=== PATIENT | female | born 1990 | race Caucasian/White ===

== ENCOUNTER 2017-01-04 18:56 | Emergency (ER) | payer MEDICAID ==
[2017-01-04 19:40] LABS: BASOPHILS 0.1 % (0.0-2.0); EOSINOPHILS 1.3 % (0-7); HEMOGLOBIN 12.9 g/dL (12-16); IMMATURE GRANULOCYTES 0.5 % (0-5); LYMPHOCYTES 27.4 % (15-50); MCH 26.9 pg (26.0-34.0); MCHC 33.1 g/dL (31.0-37.0); MCV 81.3 fL (80.0-100.0); MEAN PLATELET VOLUME 9.7 fL (7.4-10.4); NEUTROPHILS 65.7 % (40-80); PLATELET COUNT 261 10x3/uL (130-400); RDW 14.3 % (11.5-14.5); WBC 8.6 10x3/uL (4.8-10.8)
[2017-01-04 20:14] LABS: ALBUMIN 3.3 g/dL (3.4-5.0); ALKALINE PHOSPHATASE 98 U/L (46-116); ALT (SGPT) 25 U/L (10-68); BILIRUBIN - TOTAL 0.11 mg/dL (0.2-1.3); CALC OSMOLALITY 271 mosm/kg (275-300); CALCIUM 8.8 mg/dL (8.5-10.1); CARBAMAZEPINE (TEGRETOL) 3.9 ug/mL (4.0-12.0); CARBON DIOXIDE 24.2 mmol/L (21.0-32.0); CHLORIDE - SERUM 102 mmol/L (98-107); CREATININE - SERUM 0.8 mg/dL (0.6-1.3); GLUCOSE 80 mg/dL (74-106); MAGNESIUM - SERUM 1.8 mg/dL (1.8-2.4); POTASSIUM - SERUM 3.7 mmol/L (3.5-5.1); SODIUM 136 mmol/L (136-145); UREA NITROGEN 14 mg/dL (7-18); eGFR NON AFRICAN AMERICAN > 90 mL/min (90-120)
== END 2017-01-04 22:00 | disposition home or self-care (01) ==
LOC: D.ER 18:56
PROVIDERS: Emergency Medicine
DX: R56.9 Unspecified convulsions (principal); G43.909 Migraine, unspecified, not intractable, without status migrainosus; T42.1X6A Underdosing of iminostilbenes, initial encounter; Y92.9 Unspecified place or not applicable; E03.9 Hypothyroidism, unspecified

== ENCOUNTER 2017-01-22 14:51 | Emergency (ER) | payer MEDICAID ==
[2017-01-22 18:06] LABS: BASOPHILS 0.2 % (0.0-2.0); EOSINOPHILS 1.5 % (0-7); HEMOGLOBIN 13.3 g/dL (12-16); IMMATURE GRANULOCYTES 0.2 % (0-5); LYMPHOCYTES 38.9 % (15-50); MCH 26.7 pg (26.0-34.0); MCHC 32.4 g/dL (31.0-37.0); MCV 82.2 fL (80.0-100.0); MONOCYTES 4.9 % (2-11); NEUTROPHILS 54.3 % (40-80); PLATELET COUNT 273 10x3/uL (130-400); RBC 4.99 10x6/uL (4.00-5.40); RDW 14.2 % (11.5-14.5); WBC 6.1 10x3/uL (4.8-10.8)
[2017-01-22 18:20] LABS: ALBUMIN 3.5 g/dL (3.4-5.0); ALKALINE PHOSPHATASE 127 U/L (46-116); ALT (SGPT) 37 U/L (10-68); BILIRUBIN - TOTAL 0.12 mg/dL (0.2-1.3); CALC OSMOLALITY 275 mosm/kg (275-300); CHLORIDE - SERUM 105 mmol/L (98-107); CREATININE - SERUM 0.7 mg/dL (0.6-1.3); GLUCOSE 79 mg/dL (74-106); PHENYTOIN (DILANTIN) 2.8 ug/mL (10.0-20.0); POTASSIUM - SERUM 4.4 mmol/L (3.5-5.1); PROTEIN - SERUM 7.3 g/dL (6.4-8.2); SODIUM 139 mmol/L (136-145); UREA NITROGEN 10 mg/dL (7-18); eGFR NON AFRICAN AMERICAN > 90 mL/min (90-120)
[2017-01-22 18:50] LABS: APPEARANCE HAZY (CLEAR); BILIRUBIN NEGATIVE (NEGATIVE); COLOR YELLOW (YELLOW); GLUCOSE NEGATIVE (NEGATIVE); KETONE NEGATIVE (NEGATIVE); LEUKOCYTE ESTERASE TRACE (NEGATIVE); NITRITE NEGATIVE (NEGATIVE); PROTEIN NEGATIVE (NEGATIVE); RED CELLS - URINE 0-5 /hpf (0-5); SPECIFIC GRAVITY 1.015 (1.005-1.020); UROBILINOGEN NORMAL (NORMAL)
[2017-01-22 18:51] LABS: BACTERIA MODERATE /hpf (NONE SEEN); EPITHELIAL CELLS 0-5 /hpf (0-5); MUCUS <1+ /lpf (NONE SEEN)
[2017-01-22 18:52] LABS: UDS - AMPHET NEGATIVE QUAL (NEGATIVE); UDS - BARB NEGATIVE QUAL (NEGATIVE); UDS - BENZO NEGATIVE QUAL (NEGATIVE); UDS - COCAINE NEGATIVE QUAL (NEGATIVE); UDS - METH NEGATIVE QUAL (NEGATIVE); UDS - OPIATE NEGATIVE QUAL (NEGATIVE); UDS - PCP NEGATIVE QUAL (NEGATIVE); UDS - THC POSITIVE QUAL (NEGATIVE)
== END 2017-01-22 20:22 | disposition home or self-care (01) ==
LOC: D.ER 14:51
PROVIDERS: Nurse Practitioner Family
DX: G43.909 Migraine, unspecified, not intractable, without status migrainosus (principal); R11.2 Nausea with vomiting, unspecified; G40.909 Epilepsy, unspecified, not intractable, without status epilepticus; E03.9 Hypothyroidism, unspecified

== ENCOUNTER 2017-02-20 04:04 | Emergency (ER) | payer MEDICAID ==
[2017-02-20 04:38] LABS: APPEARANCE TURBID (CLEAR); BACTERIA MODERATE /hpf (NONE SEEN); BILIRUBIN NEGATIVE (NEGATIVE); COLOR RED (YELLOW); EPITHELIAL CELLS 0-5 /hpf (0-5); GLUCOSE NEGATIVE (NEGATIVE); KETONE NEGATIVE (NEGATIVE); LEUKOCYTE ESTERASE 2+ (NEGATIVE); NITRITE NEGATIVE (NEGATIVE); PROTEIN 2+ mg/dL (NEGATIVE); RED CELLS - URINE >50 /hpf (0-5); UROBILINOGEN NORMAL (NORMAL); WHITE CELLS - URINE 25-50 /hpf (0-5)
[2017-02-20 04:50] LABS: BASOPHILS 0.1 % (0.0-2.0); EOSINOPHILS 1.3 % (0-7); HEMATOCRIT 42.5 % (36.0-48.0); HEMOGLOBIN 13.9 g/dL (12-16); IMMATURE GRANULOCYTES 0.4 % (0-5); LYMPHOCYTES 22.4 % (15-50); MCH 26.7 pg (26.0-34.0); MCHC 32.7 g/dL (31.0-37.0); MCV 81.6 fL (80.0-100.0); MEAN PLATELET VOLUME 9.9 fL (7.4-10.4); MONOCYTES 4.4 % (2-11); NEUTROPHILS 71.4 % (40-80); PLATELET COUNT 295 10x3/uL (130-400); RBC 5.21 10x6/uL (4.00-5.40); WBC 14.2 10x3/uL (4.8-10.8)
[2017-02-20 05:01] LABS: HCG SERUM NEGATIVE (NEGATIVE)
== END 2017-02-20 05:55 | disposition home or self-care (01) ==
LOC: D.ER 04:04
PROVIDERS: Emergency Medicine
DX: N39.0 Urinary tract infection, site not specified (principal); R10.32 Left lower quadrant pain; G40.909 Epilepsy, unspecified, not intractable, without status epilepticus; E03.9 Hypothyroidism, unspecified; F17.200 Nicotine dependence, unspecified, uncomplicated; F12.90 Cannabis use, unspecified, uncomplicated

== ENCOUNTER 2017-03-18 21:38 | Emergency (ER) | payer MEDICAID ==
[2017-03-18 23:02] LABS: BASOPHILS 0.1 % (0-2); EOSINOPHILS 1.2 % (0-7); HEMATOCRIT 44.2 % (36.0-48.0); HEMOGLOBIN 14.5 g/dL (12-16); IMMATURE GRANULOCYTES 0.4 % (0-5); LYMPHOCYTES 36.5 % (15-50); MCH 27.4 pg (26.0-34.0); MCHC 32.8 g/dL (31.0-37.0); MCV 83.4 fL (80.0-100.0); MEAN PLATELET VOLUME 10.2 fL (7.4-10.4); MONOCYTES 5.3 % (2-11); NEUTROPHILS 56.5 % (40-80); PLATELET COUNT 292 10x3/uL (130-400); RDW 14.2 % (11.5-14.5); WBC 8.1 10x3/uL (4.8-10.8)
[2017-03-18 23:16] LABS: APPEARANCE HAZY (CLEAR); BACTERIA FEW /hpf (NONE SEEN); BILIRUBIN NEGATIVE (NEGATIVE); COLOR YELLOW (YELLOW); EPITHELIAL CELLS 0-5 /hpf (0-5); GLUCOSE NEGATIVE (NEGATIVE); KETONE NEGATIVE (NEGATIVE); LEUKOCYTE ESTERASE 1+ (NEGATIVE); NITRITE NEGATIVE (NEGATIVE); PROTEIN NEGATIVE (NEGATIVE); RED CELLS - URINE NONE SEEN /hpf (0-5); UROBILINOGEN NORMAL (NORMAL)
[2017-03-18 23:17] LABS: ALBUMIN 3.5 g/dL (3.4-5.0); ALKALINE PHOSPHATASE 169 U/L (46-116); ALT (SGPT) 110 U/L (10-68); BILIRUBIN - TOTAL 0.23 mg/dL (0.2-1.3); CALC OSMOLALITY 278 mosm/kg (275-300); CALCIUM 9.1 mg/dL (8.5-10.1); CARBON DIOXIDE 26.4 mmol/L (21.0-32.0); CHLORIDE - SERUM 103 mmol/L (98-107); CREATININE - SERUM 0.8 mg/dL (0.6-1.3); GLUCOSE 105 mg/dL (74-106); POTASSIUM - SERUM 3.5 mmol/L (3.5-5.1); PROTEIN - SERUM 7.4 g/dL (6.4-8.2); SODIUM 139 mmol/L (136-145); UREA NITROGEN 14 mg/dL (7-18); eGFR NON AFRICAN AMERICAN > 90 mL/min (90-120)
[2017-03-18 23:19] LABS: HCG SERUM NEGATIVE (NEGATIVE)
[2017-03-18 23:25] LABS: MAGNESIUM - SERUM 2.1 mg/dL (1.8-2.4); THYROID STIMULATING HORMONE 2.76 uIU/mL (0.36-3.74)
== END 2017-03-19 01:34 | disposition home or self-care (01) ==
LOC: D.ER 21:38
PROVIDERS: Emergency Medicine
DX: R10.9 Unspecified abdominal pain (principal); R11.10 Vomiting, unspecified; E86.0 Dehydration; G40.909 Epilepsy, unspecified, not intractable, without status epilepticus; E03.9 Hypothyroidism, unspecified; F17.200 Nicotine dependence, unspecified, uncomplicated

== ENCOUNTER 2017-04-19 21:26 | Emergency (ER) | payer MEDICAID | END 2017-04-20 02:31 | disposition home or self-care (01) | LOC: D.ER 21:26 | DX: M26.609 Unspecified temporomandibular joint disorder, unspecified side (principal); F17.200 Nicotine dependence, unspecified, uncomplicated ==

== ENCOUNTER 2017-06-01 22:58 | Emergency (ER) | payer MEDICAID ==
[2017-06-02] LABS: APPEARANCE CLEAR (CLEAR); COLOR STRAW (YELLOW); UDS - AMPHET NEGATIVE QUAL (NEGATIVE); UDS - BARB NEGATIVE QUAL (NEGATIVE); UDS - BENZO NEGATIVE QUAL (NEGATIVE); UDS - COCAINE NEGATIVE QUAL (NEGATIVE); UDS - METH NEGATIVE QUAL (NEGATIVE); UDS - OPIATE NEGATIVE QUAL (NEGATIVE); UDS - PCP NEGATIVE QUAL (NEGATIVE); UDS - THC POSITIVE QUAL (NEGATIVE)
[2017-06-02 00:01] LABS: BILIRUBIN NEGATIVE (NEGATIVE); GLUCOSE NEGATIVE (NEGATIVE); KETONE NEGATIVE (NEGATIVE); LEUKOCYTE ESTERASE 1+ (NEGATIVE); NITRITE NEGATIVE (NEGATIVE); PROTEIN NEGATIVE (NEGATIVE); SPECIFIC GRAVITY 1.005 (1.005-1.020); UROBILINOGEN NORMAL (NORMAL)
[2017-06-02 00:04] LABS: BACTERIA FEW /hpf (NONE SEEN); EPITHELIAL CELLS 0-5 /hpf (0-5); RED CELLS - URINE 0-5 /hpf (0-5); WHITE CELLS - URINE 0-5 /hpf (0-5)
[2017-06-02 00:53] LABS: BASOPHILS 0.1 % (0-2); EOSINOPHILS 0.8 % (0-7); HEMATOCRIT 39.6 % (36.0-48.0); HEMOGLOBIN 13.2 g/dL (12-16); IMMATURE GRANULOCYTES 0.4 % (0-5); LYMPHOCYTES 26.6 % (15-50); MCH 27.7 pg (26.0-34.0); MCHC 33.3 g/dL (31.0-37.0); MEAN PLATELET VOLUME 9.6 fL (7.4-10.4); MONOCYTES 3.8 % (2-11); NEUTROPHILS 68.3 % (40-80); PLATELET COUNT 282 10x3/uL (130-400); RBC 4.77 10x6/uL (4.00-5.40); RDW 13.1 % (11.5-14.5); WBC 8.2 10x3/uL (4.8-10.8)
[2017-06-02 01:01] LABS: ALBUMIN 3.1 g/dL (3.4-5.0); ALKALINE PHOSPHATASE 121 U/L (46-116); ALT (SGPT) 26 U/L (10-68); BILIRUBIN - TOTAL 0.24 mg/dL (0.2-1.3); CALC OSMOLALITY 276 mosm/kg (275-300); CALCIUM 8.3 mg/dL (8.5-10.1); CARBON DIOXIDE 23.3 mmol/L (21.0-32.0); CHLORIDE - SERUM 106 mmol/L (98-107); CREATININE - SERUM 0.7 mg/dL (0.6-1.3); GLUCOSE 91 mg/dL (74-106); POTASSIUM - SERUM 3.7 mmol/L (3.5-5.1); SODIUM 140 mmol/L (136-145); UREA NITROGEN 8 mg/dL (7-18); eGFR NON AFRICAN AMERICAN > 90 mL/min (90-120)
== END 2017-06-02 07:42 | disposition home or self-care (01) ==
LOC: D.ER 22:58
PROVIDERS: Family Medicine
DX: F53 Mental and behavioral disorders associated with the puerperium, not elsewhere classified (principal); R45.851 Suicidal ideations; F17.200 Nicotine dependence, unspecified, uncomplicated; R94.31 Abnormal electrocardiogram [ECG] [EKG]

== ENCOUNTER → 2017-06-15 10:35 | Outpatient (CLI) | payer MEDICAID ==
[2017-06-15 12:44] LABS: BASOPHILS 0.1 % (0-2); EOSINOPHILS 1.3 % (0-7); HEMATOCRIT 40.9 % (36.0-48.0); HEMOGLOBIN 13.6 g/dL (12-16); IMMATURE GRANULOCYTES 0.5 % (0-5); LYMPHOCYTES 29.1 % (15-50); MCH 27.2 pg (26.0-34.0); MCHC 33.3 g/dL (31.0-37.0); MCV 81.8 fL (80.0-100.0); MEAN PLATELET VOLUME 9.7 fL (7.4-10.4); MONOCYTES 4.3 % (2-11); NEUTROPHILS 64.7 % (40-80); PLATELET COUNT 315 10x3/uL (130-400); WBC 8.2 10x3/uL (4.8-10.8)
[2017-06-15 13:00] LABS: ALBUMIN 3.4 g/dL (3.4-5.0); ALKALINE PHOSPHATASE 154 U/L (46-116); ALT (SGPT) 21 U/L (10-68); BILIRUBIN - TOTAL 0.45 mg/dL (0.2-1.3); CALC OSMOLALITY 279 mosm/kg (275-300); CALCIUM 8.9 mg/dL (8.5-10.1); CHLORIDE - SERUM 104 mmol/L (98-107); CREATININE - SERUM 0.7 mg/dL (0.6-1.3); GLUCOSE 103 mg/dL (74-106); POTASSIUM - SERUM 4.2 mmol/L (3.5-5.1); PROTEIN - SERUM 7.4 g/dL (6.4-8.2); SODIUM 141 mmol/L (136-145); UREA NITROGEN 9 mg/dL (7-18); eGFR NON AFRICAN AMERICAN > 90 mL/min (90-120)
[2017-06-15 13:02] LABS: PHENYTOIN (DILANTIN) 0.4 ug/mL (10.0-20.0)
== END | disposition home or self-care (01) ==
LOC: D.CN 10:35
PROVIDERS: Psychiatry & Neurology Neurology
DX: R51 Headache (principal); G40.101 Localization-related (focal) (partial) symptomatic epilepsy and epileptic syndromes with simple partial seizures, not intractable, with status epilepticus

== ENCOUNTER → 2017-10-25 16:01 | Outpatient (CLI) | payer MEDICAID ==
[~2017-10-25 16:01] MED LIST: DEPAKOTE500 MG PO; DURICEF500 MG PO; LISINOPRIL5 MG PO; PERCOCET 5-3251 TAB PO
[2017-11-23 09:12] VITALS: BMI 44.4
== END | disposition home or self-care (01) ==
LOC: D.MRI 10-20 14:30
DX: M25.532 Pain in left wrist (principal)

== ENCOUNTER 2017-11-23 07:14 | Day surgery (SDC) | payer MEDICAID ==
[2017-11-22 09:47] LABS: HEMATOCRIT 41.6 % (36.0-48.0); HEMOGLOBIN 13.9 g/dL (12-16); MCH 27.2 pg (26.0-34.0); MCHC 33.4 g/dL (31.0-37.0); MCV 81.4 fL (80.0-100.0); MEAN PLATELET VOLUME 9.7 fL (7.4-10.4); RBC 5.11 10x6/uL (4.00-5.40); RDW 13.6 % (11.5-14.5); WBC 8.4 10x3/uL (4.8-10.8)
[~2017-11-23] VITALS: Ht 175.3 cm; Wt 136.1 kg
--- NOTE | ~2017-11-23 | OP ---
PATIENT NAME: MALATHI PARRY MEDICAL RECORD: [id number] :90 LOCATION:D.OPS ADMISSION DATE: SURGEON: PABLO GUIDRY DO DATE OF OPERATION: 11/23/2017 PROCEDURE PERFORMED: Excision of ganglion, left volar wrist. PREOPERATIVE DIAGNOSIS: Left volar wrist ganglion. POSTOPERATIVE DIAGNOSIS: Left volar wrist ganglion. INDICATIONS: Ms. Parry is a 26-year-old female who has complained of a left wrist volar mass for some time. She is tired of it hurting and it is getting bigger, she says. An MRI was done to ensure, due to the location was on the radial side, it was not an aneurysm and it was not. She was scheduled for surgery to have it removed. She is aware of the risks and benefits of the procedure. TOURNIQUET TIME: 8 minutes. COMPLICATIONS: None. BLOOD LOSS: Minimal. DESCRIPTION OF PROCEDURE: The patient was taken to the operative suite, laid in supine position, given general anesthetic, and LMA was placed. A 2 grams Ancef were given prior to starting. The left upper extremity was prepped and draped in sterile fashion. A timeout was then performed and everyone is in agreeance to correct side, site, and patient. Tourniquet had been placed above the elbow prior to draping, wound, and the timeout. After the timeout was performed, incision was marked out over the radial wrist volar aspect. Once this was done, an Esmarch was used to exsanguinate the left upper extremity and the tourniquet was inflated to 250 mmHg. The incision then was made right over the ganglion and careful dissection was made down to it. It was freed up of all the soft tissue and the stalk was traced back to wrist capsule on the volar side and at that time, the ganglion ruptured, and the stalk and everything was removed and where the stalk had come out of the wrist, a bipolar was used to coagulate the stalk, feeling that hole on the wrist capsule. After this was done, the tourniquet was let down and any bleeders at that time were coagulated. The skin was then closed with 5-0 Monocryl inverted interrupted fashion and Steri-Strips were placed over that and then 10 mL of 1% lidocaine were placed around the incision to anesthetize the area. The wound was then covered with Adaptic, 4 x 4s, Kerlix, and Coban was lightly wrapped over the hand. The patient was awakened and taken to recovery in stable condition. TRANSINT:[id number] Voice Confirmation ID: [id number] DOCUMENT ID: [id number] OPERATIVE REPORT [id number] MALATHI PARRY MICHAEL D, DO at 1931 CC: [id number] DICTATION DATE: 11/23/17 1252 ANIMAL PATHOLOGIST: 11/23/17 1348 [facility] 11/23/17 [place] [address] [place] [address]
[~2017-11-23 07:14] MED LIST changes: -DURICEF500 MG PO; -PERCOCET 5-3251 TAB PO
[2017-11-23 09:12] VITALS: BP 105/76; Ht 175.3 cm; Wt 136.1 kg
[2017-11-23 09:36] LABS: HCG URINE NEGATIVE (NEGATIVE)
[2017-11-23] MEDS ORDERED: PERCOCET 5-3251 TAB PO (12:47)
[2017-11-23] MEDS ORDERED: DURICEF500 MG PO (12:48)
== END 2017-11-23 14:23 | disposition home or self-care (01) ==
LOC: D.OPS 07:14
PROVIDERS: Anesthesiology; Orthopaedic Surgery
DX: M67.432 Ganglion, left wrist (principal); F17.200 Nicotine dependence, unspecified, uncomplicated; I10 Essential (primary) hypertension; E03.9 Hypothyroidism, unspecified; G47.30 Sleep apnea, unspecified; K21.9 Gastro-esophageal reflux disease without esophagitis; E66.01 Morbid (severe) obesity due to excess calories; Z68.41 Body mass index [BMI] 40.0-44.9, adult; Z01.812 Encounter for preprocedural laboratory examination

== ENCOUNTER 2017-12-23 17:12 | Emergency (ER) | payer MEDICAID ==
[2017-11-23 09:12] VITALS: BMI 44.4
[~2017-12-23 17:12] MED LIST changes: +DURICEF500 MG PO; +PERCOCET 5-3251 TAB PO
[2017-12-23 19:28] LABS: BASOPHILS 0.1 % (0-2); EOSINOPHILS 0.7 % (0-7); HEMATOCRIT 41.9 % (36.0-48.0); HEMOGLOBIN 13.8 g/dL (12-16); IMMATURE GRANULOCYTES 0.6 % (0-5); LYMPHOCYTES 30.9 % (15-50); MCH 26.7 pg (26.0-34.0); MCHC 32.9 g/dL (31.0-37.0); MEAN PLATELET VOLUME 9.7 fL (7.4-10.4); MONOCYTES 4.3 % (2-11); NEUTROPHILS 63.4 % (40-80); PLATELET COUNT 308 10x3/uL (130-400); RBC 5.17 10x6/uL (4.00-5.40); RDW 13.7 % (11.5-14.5); WBC 10.8 10x3/uL (4.8-10.8)
[2017-12-23 19:42] LABS: ALBUMIN 3.3 g/dL (3.4-5.0); ALKALINE PHOSPHATASE 117 U/L (46-116); ALT (SGPT) 22 U/L (10-68); BILIRUBIN - TOTAL 0.23 mg/dL (0.2-1.3); CALC OSMOLALITY 280 mosm/kg (275-300); CALCIUM 9.4 mg/dL (8.5-10.1); CARBON DIOXIDE 25.6 mmol/L (21.0-32.0); CHLORIDE - SERUM 104 mmol/L (98-107); CREATININE - SERUM 0.7 mg/dL (0.6-1.3); GLUCOSE 86 mg/dL (74-106); PROTEIN - SERUM 7.2 g/dL (6.4-8.2); SODIUM 141 mmol/L (136-145); UREA NITROGEN 16 mg/dL (7-18); eGFR NON AFRICAN AMERICAN > 90 mL/min (90-120)
[2017-12-23 19:43] LABS: VALPROIC ACID (DEPAKOTE) 21.7 ug/mL (50.0-100.0)
== END 2017-12-23 21:58 | disposition home or self-care (01) ==
LOC: D.ER 17:12
PROVIDERS: Physician Assistant Medical
DX: G43.909 Migraine, unspecified, not intractable, without status migrainosus (principal); F17.200 Nicotine dependence, unspecified, uncomplicated

== ENCOUNTER 2018-10-25 20:22 | Emergency (ER) | payer MEDICAID ==
[~2018-10-25] VITALS: Ht 175.3 cm; Wt 135.5 kg
[2018-10-25 20:38] VITALS: Ht 175.3 cm; Wt 135.5 kg
[2018-10-25] MEDS ORDERED: PRENAVITE1 TAB (20:39)
[2018-10-25] MEDS ORDERED: ZOFRAN ODT4 MG/UDTAB PO (23:14)
[2018-10-25] MEDS ORDERED: TAMIFLU75 MG PO (23:14)
[2018-10-25] MEDS ORDERED: ALBUTEROL SULF8.5 GM INH (23:15)
[2018-10-25 23:47] VITALS: BP 101/54
== END 2018-10-25 23:49 | disposition home or self-care (01) ==
LOC: D.ER 20:22
DX: O26.891 Other specified pregnancy related conditions, first trimester (principal); Z3A.10 10 weeks gestation of pregnancy; J11.1 Influenza due to unidentified influenza virus with other respiratory manifestations; R06.2 Wheezing; R09.89 Other specified symptoms and signs involving the circulatory and respiratory systems; R05 Cough; R50.9 Fever, unspecified; F17.200 Nicotine dependence, unspecified, uncomplicated

== ENCOUNTER 2018-12-28 19:22 | Emergency (ER) | payer MEDICAID ==
[~2018-12-28] VITALS: Ht 175.3 cm; Wt 127.3 kg
[~2018-12-28 19:22] MED LIST changes: +ALBUTEROL SULF8.5 GM INH; +PRENAVITE1 TAB; +TAMIFLU75 MG PO; +ZOFRAN ODT4 MG/UDTAB PO
[2018-12-28 19:42] VITALS: Ht 175.3 cm; Wt 127.3 kg
[2018-12-28] MEDS ORDERED: CBD OILS (19:43)
[2018-12-28 20:31] LABS: APPEARANCE CLEAR (CLEAR); BILIRUBIN NEGATIVE (NEGATIVE); COLOR YELLOW (YELLOW); GLUCOSE NEGATIVE (NEGATIVE); KETONE NEGATIVE (NEGATIVE); NITRITE NEGATIVE (NEGATIVE); PROTEIN NEGATIVE (NEGATIVE); UROBILINOGEN NORMAL (NORMAL)
[2018-12-28 21:20] VITALS: BP 135/75
== END 2018-12-28 22:28 | disposition home or self-care (01) ==
LOC: D.ER 19:22
PROVIDERS: Family Medicine
DX: O34.80 Maternal care for other abnormalities of pelvic organs, unspecified trimester (principal); Z3A.00 Weeks of gestation of pregnancy not specified; N81.2 Incomplete uterovaginal prolapse

== ENCOUNTER 2019-03-03 15:57 | Observation (INO) | payer MEDICAID ==
[~2019-03-03] VITALS: Ht 177.8 cm; Wt 137.0 kg
[~2019-03-03 15:57] MED LIST changes: +CBD OILS
--- NOTE | 2019-03-03 17:44 | NUR ---
PT STATES SHE WAS WALKING ON A STEP AND THE STEP BROKE, SHE FELL, IMMEDIATE PAIN TO HER RIGHT ANKLE, STATES SHE HEARD SOMETHING POP. RIGHT LEG ELEVATED WITH ICE PACK, AT BEDSIDE. PROVIDER CALLING ORTHO AND OB DOCTORS. PATIENT WANTING SOMETHING FOR PAIN, WAITING TO CONSULT WITH OB.
[2019-03-03 18:30] VITALS: BP 118/77
[2019-03-03 19:18] LABS: BASOPHILS 0.1 % (0-2); EOSINOPHILS 0.8 % (0-7); HEMATOCRIT 34.3 % (36.0-48.0); HEMOGLOBIN 11.5 g/dL (12-16); IMMATURE GRANULOCYTES 0.6 % (0-5); LYMPHOCYTES 12.9 % (15-50); MCH 25.8 pg (26.0-34.0); MCHC 33.5 g/dL (31.0-37.0); MCV 77.1 fL (80.0-100.0); MEAN PLATELET VOLUME 9.8 fL (7.4-10.4); MONOCYTES 2.1 % (2-11); NEUTROPHILS 83.5 % (40-80); PLATELET COUNT 286 10x3/uL (130-400); RBC 4.45 10x6/uL (4.00-5.40); RDW 14.6 % (11.5-14.5); WBC 11.6 10x3/uL (4.8-10.8)
--- NOTE | 2019-03-03 19:20 | NUR ---
PT FRACTURED RIGHT ANKLE, ICE PACK PLACED ON RIGHT ANKLE. PT TO BE ADMITTED, PATIENT PLACED ON BEDPAN, CLOTHES REMOVED, GOWN PUT ON. PATIENT DOING WELL CAN BE EXPECTED, CALL LIGHT WITHIN REACH. HEART TONES 144, PROVIDER NOTIFIED.
[2019-03-03 19:23] VITALS: BP 113/71
[2019-03-03 19:29] LABS: HCG SERUM POSITIVE (NEGATIVE)
[2019-03-03 19:32] LABS: APTT 29.9 SECONDS (22.8-39.4); INR 0.97 (0.85-1.17); PROTIME 12.4 SECONDS (11.6-15.0)
[2019-03-03 19:36] LABS: ALBUMIN 2.5 g/dL (3.4-5.0); ALKALINE PHOSPHATASE 80 U/L (46-116); ALT (SGPT) 14 U/L (10-68); BILIRUBIN - TOTAL 0.14 mg/dL (0.2-1.3); CALC OSMOLALITY 273 mosm/kg (275-300); CALCIUM 8.3 mg/dL (8.5-10.1); CARBON DIOXIDE 21.8 mmol/L (21.0-32.0); CHLORIDE - SERUM 103 mmol/L (98-107); CREATININE - SERUM 0.5 mg/dL (0.6-1.3); GLUCOSE 91 mg/dL (74-106); POTASSIUM - SERUM 4.1 mmol/L (3.5-5.1); PROTEIN - SERUM 6.4 g/dL (6.4-8.2); SODIUM 138 mmol/L (136-145); UREA NITROGEN 8 mg/dL (7-18); eGFR NON AFRICAN AMERICAN > 90 mL/min (90-120)
[2019-03-03 21:26] VITALS: BP 135/84
--- NOTE | 2019-03-03 21:36 | NUR ---
PT VSS - RATES PAIN 06/24 -DR AT BEDSIDE - PT GIVEN BENDARYL, MORPHINE AND PHENERGREN TO ALLEVIATE PAIN. PT ASKING TO GO OUTSIDE TO SMOKE - THIS NURSE EXPLAINED TO HER THAT SHE CANNOT GO OUTSIDE THE HOSPITAL TO SMOKE AND THAT ANY ATTEMPTS TO LEAVE THE ED WHILE ON PAIN MEDS WITH AN INFUSING IV, FRACTURED FOOT AND IS NOT ADVISED.
--- NOTE | 2019-03-03 22:15 | NUR ---
PATIENT TRANSPORTED TO L&D WITH NS INFUSING AT 100 ML/HR
[2019-03-04 00:11] VITALS: BP 112/59; BMI 43.4
--- NOTE | 2019-03-04 05:49 | NUR ---
IV PITOCIN OFF PER ORDER DR. AMATO. PT. CURRENTLY LOOKING AT CELL PHONE. KMNEE JERK REFLEXES BRISK.
--- NOTE | 2019-03-04 07:45 | NUR ---
ASSUMED CARE OF THIS PATIENT. SITTING IN LOW BERGMAN'S POSITION. WAITING TO GO TO SURGERY THIS AM. VS OBTAINED. PER MD ORDERS NST PRIOR TO SURGERY. IV LR INFUSING LEFT WRIST ON ALARIS PUMP AT 100 ML/HR. POWERS INTACT AND DRAINING MOD YELLOW URINE. RIGHT LEG ELEVATED ON PILLOWS WITH ICE PACK IN PLACE. VISITOR X 1 IN ROOM. SIDE RAILS UP X 2, CALL LIGHT IN REACH.
--- NOTE | 2019-03-04 08:40 | NUR ---
NST REACTIVE. MONITOR DC'D. OR TECH IN ROOM WAITING TO TAKE PT TO OR.
--- NOTE | 2019-03-04 08:40 | NUR ---
PLACED ON MONITOR FOR NST. UNSURE WHEN OR WILL BE HERE TO GET PATIENT FOR SURGERY.
--- NOTE | 2019-03-04 08:44 | NUR ---
DR AMATO IN ROOM. REVIEWED STRIP.
--- NOTE | 2019-03-04 08:45 | NUR ---
PRE-OP MEDS GIVEN AND PRE-OP CHECK OFF SLEEP WAS COMPLETED. CONSENTS SIGNED AND WITNESSED EARILIER.
--- NOTE | 2019-03-04 08:59 | NUR ---
TO OR VIA BED.
--- NOTE | 2019-03-04 10:07 | NUR ---
MONITOR ON IN OR. THIS RN HAND HELD US DURING SURGICAL PROCEDURE. TIME ON MONITOR ONE HOUR OFF. TIME ON STRIP 0907 BUT ACTUAL START 1007.
--- NOTE | 2019-03-04 10:26 | NUR ---
O2 WITH MASK ADDED. PT BECAME FIRE RISK OF 2. WATER ON FIELD
[2019-03-04 10:34] VITALS: Ht 177.8 cm; Wt 137.0 kg
--- NOTE | 2019-03-04 10:44 | NUR ---
MONITORS OFF AT THE COMPLETION OF SURGERY. FHT BASELINE 145 WITH ACCELERATIONS AND MOD VARIABILITY. NO CTXS NOTED.
--- NOTE | 2019-03-04 10:52 | NUR ---
MONITOR ON WHILE IN RECOVERY ROOM. HAND HELD US.
--- NOTE | 2019-03-04 11:10 | NUR ---
MONITOR DC'D IN RECOVERY ROOM. FHTS BASELINE 130. MOD VARIABILITY WITH ACCELS.
--- NOTE | 2019-03-04 11:20 | NUR ---
STRIP TAKEN TO L&D. PT REMAINS IN RECOVERY. DR AMATO REVIEWED BOTH STRIPS AND SIGNED THEM OFF.
--- NOTE | 2019-03-04 11:27 | NUR ---
DR DE LEON AT BEDSIDE. REBLOCKED PATIENT'S RIGHT LEG. WILL CONTINUE TO MONITOR.
--- NOTE | 2019-03-04 11:55 | NUR ---
UPON LEAVING SURGERY DEPARTMENT, I RECEIVED A PHONE CALL FROM MALIA SAVAGE IN [facility] STATING THAT THIS PATIENT HAS BEEN CLEARED WITH HER POST OP NST PER DR. AMATO. VERBAL ORDERS RECEIVED FROM DR. AMATO TO TRANSFER PATIENT TO MED/SURG FLOOR TO HAVE DR. BRINK RESUME CARE FOR THIS PATIENT. CALLED MALIA OLIVEROSSOLAR SALES ASSOCIATE AND INFORMED HER OF THE ABOVE. SHE THEN ASSIGNED ROOM #[id number] ON MED/SURG FLOOR. I THEN TRANSFERRED PATIENT TO ROOM.
--- NOTE | 2019-03-04 12:26 | NUR ---
PT RECEIVED FROM SURGERY ALERT AND ORIENTED AND DENIES ANY PAIN OR DISCOMFORT AT THIS TIME. UNALBE TO MOVE EXTREMTIY DUE TO BLOCK. CAP REFILL <3 SEC. FUSBAND PRESENT WITH CLL LIGHT IN REACH. STABLE AT THIS TIME
[2019-03-04 16:00] VITALS: BP 105/48
[2019-03-04 17:12] VITALS: BP 105/48
--- NOTE | 2019-03-04 18:32 | NUR ---
PT RECEIVING MORE FEELING TO RLE WITH MS GIVEN FOR RELEIF OF PAIN. CAP REFILL LESS THAN 3 SECONDS. FAMILY PRESENT WITH HEART TONES NOTED PER DOPPLER.
--- NOTE | 2019-03-04 18:56 | NUR ---
PORTABLE MONITOR WAS TAKED TO MED/SURG [place]EN TO DO NST PER MD ORDERS. STARTED MONITOR AT 1818- MONITOR TIME INCORRECT AN HOUR EARLIER. FHT BASELINE 125 WITH ACCELS TO 150. NO CTXS NOTED. HAND HELD MONITOR DURING ENTIRE MONITORING TO KEEP FETUS ON MONITOR. SOME ACCELS AUDIBLE AND FM FELT BUT OCCASIONALLY UNABLE TO KEEP CONTINUOUS STRIP. ABDOMEN SOFT. PT NEEDED TO VOID AT END OF MONITOR WAS ASSISTED UP TO BATHROOM BY FAMILY AND USED WALKER.
--- NOTE | 2019-03-04 19:30 | NUR ---
PT ALERT AND ORIENTED. FAMILY IN ROOM. LOWER RIGHT EXTREMETY ELEVATED ON PILLOW. TOES WARM. DENIES BEING ABLE TO MOVE TOES AT THIS TIME BUT ABLE TO LIFT LEG WITH NO PROBLEMS. CAST WRAPPED WITH MAK WRAP. MAK WRAP CLEAN, NO DRAINIAGE AT THIS TIME. CALL LIGHT IN REACH. PT PROVIDES RETURN DEMONSTRATION ON HOW TO USE. DENIES FURTHER CARE AT THIS TIME.
--- NOTE | 2019-03-04 19:38 | NUR ---
REPORT CALLED TO DR AMATO REGARDING STRIP. NO NEW ORDERS RECEIVED.
[2019-03-04 20:00] VITALS: BP 117/53
--- NOTE | 2019-03-04 21:56 | NUR ---
REPORT GIVEN TO DR. BRINK WHEN HE CALLED TO CHECK IN.
--- NOTE | 2019-03-04 22:21 | NUR ---
ASSISTED PATIENT TO BATHROOM. CHECKED CAP REFILL. TOES WARM TO TOUCH. DENIES PAIN AT THIS TIME BUT STATES SHE IS SORE WHEN AMBULATING WITH WALKER. RETURNED BACK TO BED CALL LIGHT IN REACH.
--- NOTE | 2019-03-04 23:33 | NUR ---
PAGED TO ROOM BY TRISTON. WALKED IN AND PATIENT HAVING ACTIVE SEIZURE. TURNED PATIENT TO SIDE. PATIENT TURNED TO SIDE AND RAPID RESPONSE CALLED. PT SEIZED FOR 10-15 SECONDS AFTER THEN TAKES VERY LARGE DEEP BREATH AND BEGINS TO ANSWER QUESTIONS. RESPIRATORY IN ROOM SPO2 97%. VITALS OBTAINED BP 119/50. HR 95. RESPIRATIONS 18. FSBS 101. DR. KEENA OLSON. DR LM OLSON. L&D TO FLOOR. HEART TONES NOTED. PT ALERT. ANSWERING QUESTIONS APPROPRIATELY. STATES HISTORY OF EPIPLEPSY AND TONIC CLONIC SEIZURES. HAS BEEN UNABLE TO TAKE CBD OIL. VSS STABLE AT THIS TIME.
[2019-03-04 23:47] LABS: BASOPHILS 0.1 % (0-2); EOSINOPHILS 1.4 % (0-7); HEMATOCRIT 32.2 % (36.0-48.0); HEMOGLOBIN 10.5 g/dL (12-16); IMMATURE GRANULOCYTES 0.7 % (0-5); LYMPHOCYTES 16.8 % (15-50); MCH 25.4 pg (26.0-34.0); MCHC 32.6 g/dL (31.0-37.0); MEAN PLATELET VOLUME 9.5 fL (7.4-10.4); PLATELET COUNT 239 10x3/uL (130-400); RBC 4.13 10x6/uL (4.00-5.40); RDW 14.6 % (11.5-14.5); WBC 9.9 10x3/uL (4.8-10.8)
--- NOTE | 2019-03-04 23:48 | NUR ---
THIS RN AT BEDSIDE. PT CONVERSING WITH STAFF. MOVEMENT PALPABLE BY RN. PT STATES THAT SHE CAN FEEL MOVEMENT ALSO. FHT'S 130'S-140'S. ABD PALPATES SOFT. UNABLE TO APPLY TOCO AT THIS TIME, D/T RR TEAM WORKING WITH PT.
[2019-03-05] VITALS: BP 119/50
--- NOTE | 2019-03-05 | NUR ---
ABD CONTINUES TO PALPATE SOFT. TOCO APPLIED. EFM ADJUSTED, FHT'S REMAIN 120'S-130'S.
[2019-03-05 00:11] LABS: ALBUMIN 2.1 g/dL (3.4-5.0); ALKALINE PHOSPHATASE 74 U/L (46-116); ALT (SGPT) 12 U/L (10-68); BILIRUBIN - TOTAL 0.22 mg/dL (0.2-1.3); CALC OSMOLALITY 269 mosm/kg (275-300); CALCIUM 7.6 mg/dL (8.5-10.1); CARBON DIOXIDE 22.3 mmol/L (21.0-32.0); CHLORIDE - SERUM 104 mmol/L (98-107); CREATININE - SERUM 0.6 mg/dL (0.6-1.3); GLUCOSE 94 mg/dL (74-106); MAGNESIUM - SERUM 1.7 mg/dL (1.8-2.4); POTASSIUM - SERUM 3.7 mmol/L (3.5-5.1); PROTEIN - SERUM 6.3 g/dL (6.4-8.2); SODIUM 136 mmol/L (136-145); UREA NITROGEN 6 mg/dL (7-18); eGFR NON AFRICAN AMERICAN > 90 mL/min (90-120)
--- NOTE | 2019-03-05 00:12 | NUR ---
DR. AMATO CALLS INTO ROOM, SPEAKS WITH PT REGARDING NEURO APPT AT [facility]. FOLLOWING SPEAKING WITH THE PT THIS RN SPOKE WITH DR. AMATO. TRACE REVIEWED WITH DR. AMATO. BASELINE 130'S WITH 10X10 ACCELS, MODERATE VARIBILITY, UC TIMES 1 PALPATED MILD LASTING 40 SECONDS. PT DENIED FEELING UC.
--- NOTE | 2019-03-05 00:43 | NUR ---
DR. AMATO ON UNIT. STRIP REVIEWED BY DR. AMATO.
--- NOTE | 2019-03-05 00:44 | NUR ---
DR. AMATO AT BEDSIDE DISCUSSING PLAN OF CARE WITH PT AND THAT IF SHE DECLINES TRANSFER TO [facility] IT WOULD BE AMA. DR. AMATO EXPLAINS TO PT THAT SHE HAS THE RIGHT TO REFUSE TRANSFER, HOWEVER WITH IT BEING AMA SHE WOULD NOT BE RESPONSIBLE FOR POTENTIAL BAD OUTCOMES. PT VERBALIZES UNDERSTANDING. DR. AMATO EXPLAINS BENEFITS OF TRANSFER TO PT AND SPOUSE. BOTH VERBALIZE UNDERSTANDING AND PT AGREEABLE TO TRANSFER AT THIS TIME.
--- NOTE | 2019-03-05 00:50 | NUR ---
DR. AMATO CONTACTING [facility] THROUGH [facility] [place] FOR TRANSFER.
--- NOTE | 2019-03-05 01:18 | NUR ---
PT SAT UP ON EDGE OF BED IN ATTEPMT TO AMBULATE TO BATHROOM. DENIES DIZZINESS OR LIGHTHEADED BUT REPORTS THAT SHE FEELS WEAK AND STATES THAT SHE IS UNABLE TO STAND. DR. AMATO REMAINS AT BEDSIDE, V/O REC'D TO PERFORM I&O CATH. CATH DONE USING STERILE TECHNIQUE. URINE CREATININE/PROTEIN COLLECTED AND SENT TO LAB.
--- NOTE | 2019-03-05 01:47 | NUR ---
URINE SHOWING NOT REC'D IN LAB. JAMI CLIFTON NOTIFIED AND WILL RECEIVE URINE IN AND RUN.
--- NOTE | 2019-03-05 01:56 | NUR ---
REPORT CALLED TO Allen SAUCEDO RN AT [facility].
[2019-03-05 02:02] LABS: CREATININE - URINE 80.7 mg/dL (30-125); PRO/CRE RATIO URINE 0.2 mg/g; PROTEIN - URINE 18.1 mg/dL (0.0-11.9)
--- NOTE | 2019-03-05 02:26 | NUR ---
PROTEIN/CRETININE RESULTS BACK. ATTEMPTED TO CALL DR. AMATO RESULTS PER MD ORDER. NO ANSWER, VOICEMAIL LEFT.
--- NOTE | 2019-03-05 02:35 | NUR ---
PT STATES THAT SHE IS FEELING TINGLY AND VERY TIRED. MANUAL BLOOD PRESSURE OBTAINED 118/48. CAP REFILL LESS THAN 3 SECONDS. TOES WARM TO TOUCH. PT ABLE TO LIFT LEG WITH NO PROBLEMS. RATES PAIN 3/10 AT THIS TIME. CAST AND MAK BANDAGE REMAINS INTACT WITH NO SIGNS OF BLEEDING AT THIS TIME.
--- NOTE | 2019-03-05 02:45 | NUR ---
CONTACTED [facility] PER INSTRUCTION FOR TRANSFER
--- NOTE | 2019-03-05 02:46 | NUR ---
ATTEMPTED TO CALL DR. AMATO WITH REQUESTED LAB RESULTS, NO ANSWER, PAGED WITH IMMEDIATE CALLBACK TO UNIT. URINE TOTAL PROTEIN, PROTEIN/CREATININE, AND URINE CREATININE REVIEWED WITH DR. AMATO. DR. AMATO REQUEST UPDATE ON PT TRANSFER, NOTIFIED THAT WHEN THIS CAME BACK TO L&D UNIT AT 0226 IMAGING DISK WAS BEING GATHERED AND [facility] WAS BEING CALLED BY FLOOR STAFF FOR TRANSPORT.
--- NOTE | 2019-03-05 03:13 | NUR ---
[facility] TO FLOOR. PT TRANSFERED TO STRETCHER WITH NO ISSURE. LOWER RIGHT EXTREMETY STABLIZED. REPORT GIVEN TO [facility]. CALLED PER REQUEST TO UPDATE ON PATIENT DEPARTURE.
--- NOTE | 2019-03-08 12:10 | OP ---
PATIENT NAME: MALATHI PARRY MEDICAL RECORD: [id number] :90 LOCATION:D.MS [id number] ADMISSION DATE:03/03/19 SURGEON: SAM BRINK MD DATE OF OPERATION: 03/04/2019 PREOPERATIVE DIAGNOSES: 1. Oblique fracture, displaced right lateral malleolus. 2. Third trimester . POSTOPERATIVE DIAGNOSES: 1. Oblique fracture, displaced right lateral malleolus. 2. Third trimester . PROCEDURE: Open reduction internal fixation of right lateral malleolus fracture with intraoperative monitoring. SURGEON: Sam Brink MD ANESTHESIA: Spinal with a popliteal block for extra anesthetic support. INTRAOPERATIVE COMPLICATIONS: None. SUMMARY OF PATHOLOGIC FINDINGS: The patient has displaced oblique fracture of the lateral malleolus consistent with the preoperative diagnosis reduced easily and was fixed with a Illumio VariAx 2 plate, combination of locking and nonlocking and compression screws. OPERATIVE SUMMARY IN DETAIL: After obtaining the appropriate preoperative orthopedic surgery consent as well as anesthetic consultation, evaluation and clearance, the patient was brought to the operating room and placed on the operating table in supine position. Spinal anesthesia was then administered. The patient initially got a very dense left-sided anesthesia; however, she could still feel the right lower extremity. At this point, Nickolas Salcedo and Brian Machado did a regional anesthesia. The patient immediately had complete numbness of the right ankle. Tourniquet was placed about the proximal aspect of the right lower extremity. Right lower extremity was then prepped and draped in routine sterile fashion. Leg was elevated and exsanguinated, tourniquet was inflated to 350 mmHg. Midline incision was taken down, the fracture was exposed. Periosteum was removed. Right fracture was then reduced using fracture reduction clamps and the plate was applied with a combination of both locking and nonlocking screws for anatomic islam as seen in 3 planes on fluoroscopy imaging. Please note, the patient had lead both behind her and in front of her during the case. After anatomic islam had been provided, wound was copiously irrigated and then closed with #1 Vicryl followed by skin rosaline. Sterile dressings were applied. Tourniquet was deflated. The posterior L&U splint was applied. The patient being awake with whole case was very stable as well as heart tones. The patient was then taken to recovery room where monitoring was continued. The patient was awake, in good overall condition. She will be transferred to the back to L&D where she will be monitored. Medications for pain and the appropriate IV fluids will be directed by the labor and delivery unit and gynecology. Hopefully, the patient will be able to mobilize and leave within the next 24 hours. TRANSINT:[id number] Voice Confirmation ID: [id number] DOCUMENT ID: [id number] OPERATIVE REPORT [id number] MALATHI PARRY MD, SAM FISHER at 1210 CC: [id number] DICTATION DATE: 03/04/19 1106 SURGICAL INSTRUMENTS INSPECTOR: 03/04/19 1253 [facility] IN 03/05/19 [facility] [address] [place] [address]
== END 2019-03-05 03:45 | disposition short-term general hospital (02) ==
LOC: D.ER 15:57 → D.LD 19:27 → OBSVTIME 03-04 12:00 → D.MS 03-04 12:00
PROVIDERS: Family Medicine; Obstetrics & Gynecology; ADMIT Orthopaedic Surgery; ATTEND Orthopaedic Surgery
DX: O26.893 Other specified pregnancy related conditions, third trimester (principal); S82.61XA Displaced fracture of lateral malleolus of right fibula, initial encounter for closed fracture; X58.XXXA Exposure to other specified factors, initial encounter; O16.3 Unspecified maternal hypertension, third trimester; Z3A.28 28 weeks gestation of pregnancy; O99.213 Obesity complicating pregnancy, third trimester

== ENCOUNTER → 2019-04-04 19:53 | Outpatient (CLI) | payer MEDICAID ==
[2019-03-04 10:34] VITALS: BMI 43.3
[~2019-04-04 19:53] MED LIST changes: +ACETAMINOPHEN500 M1; +KEPPRA750 MG PO; +PHENERGAN25 M1
== END | disposition home or self-care (01) ==
LOC: D.LDO 19:53
PROVIDERS: ATTEND Obstetrics & Gynecology
DX: O26.899 Other specified pregnancy related conditions, unspecified trimester (principal); Z3A.00 Weeks of gestation of pregnancy not specified

== ENCOUNTER → 2019-04-15 10:41 | Outpatient (CLI) | payer MEDICAID | END | disposition home or self-care (01) | LOC: D.LDO 10:41 | DX: O26.893 Other specified pregnancy related conditions, third trimester (principal); Z3A.35 35 weeks gestation of pregnancy ==

== ENCOUNTER → 2019-04-16 14:31 | Outpatient (CLI) | payer MEDICAID | END | disposition home or self-care (01) | LOC: D.LDO 14:31 | DX: O26.893 Other specified pregnancy related conditions, third trimester (principal); Z3A.35 35 weeks gestation of pregnancy ==

== ENCOUNTER 2019-04-19 22:00 | Outpatient (CLI) | payer MEDICAID ==
[2019-03-04 10:34] VITALS: BMI 43.3
[2019-04-23] MEDS ORDERED: ESGIC TABLET1 TAB (22:10)
== END 2019-04-20 01:00 | disposition home or self-care (01) ==
LOC: D.LDO 22:00 → D.LD 22:31 → D.LDO 04-20 01:00
PROVIDERS: ATTEND Obstetrics & Gynecology
DX: O26.893 Other specified pregnancy related conditions, third trimester (principal); Z3A.35 35 weeks gestation of pregnancy

== ENCOUNTER → 2019-04-23 21:59 | Outpatient (CLI) | payer MEDICAID ==
[2019-03-04 10:34] VITALS: BMI 43.3
[~2019-04-23 21:59] MED LIST changes: +ESGIC TABLET1 TAB
== END | disposition home or self-care (01) ==
LOC: D.LDO 21:59
PROVIDERS: ATTEND Obstetrics & Gynecology
DX: O26.893 Other specified pregnancy related conditions, third trimester (principal); Z3A.36 36 weeks gestation of pregnancy